=== PATIENT | male | born 1990 | race African-American/Black ===

== ENCOUNTER 2016-11-20 00:20 | Emergency (ER) | payer MEDICAID ==
[~2016-11-20] VITALS: Ht 182.9 cm; Wt 77.1 kg
[2016-11-20 00:36] VITALS: BP 128/77
[2016-11-20 01:33] LABS: APPEARANCE,URINE TURBID (CLEAR); BILIRUBIN,URINE NEGATIVE (NEGATIVE); BLOOD, URINE TRACE-INTA Ery/uL (NEGATIVE); COLOR,URINE YELLOW (YELLOW); KETONES,URINE NEGATIVE (NEGATIVE); LEUKOCYTE ESTERASE ,URINE 3+ (NEGATIVE); NITRITE, URINE NEGATIVE (NEGATIVE); PROTEIN,URINE NEGATIVE (NEGATIVE); UGLUCOSE NEGATIVE (NEGATIVE)
[2016-11-20 01:40] LABS: ADD URINE CULTURE YES; BACTERIA,URINE Few /HPF (None Seen); RBC,URINE 0-3 /HPF (0-2); SQUAMOUS EPITHELIAL CELL,UR Rare /HPF (None Seen); WBC,URINE TOO NUMEROUS TO COUN /HPF (0-3)
[2016-11-22 02:20] LABS: CHLAMYDIA TRACHOMATIS NAA Negative (Negative)
[2016-11-22 08:26] LABS: *NEISSERIA GONORRHOEAE NAA Positive (Negative)
== END 2016-11-20 02:00 | disposition home or self-care (01) ==
LOC: ER 00:27
DX: N39.0 Urinary tract infection, site not specified (principal)
CPT/HCPCS: 81001; 87086; 87491; 87591; 99284; A4606; Z7610; 81000-TC